=== PATIENT | male | born 2000 | race Caucasian/White ===

== ENCOUNTER → 2020-02-13 | Outpatient (CLI) | payer BC ==
--- NOTE | 2020-02-13 14:27 | Diagnostic Imaging Report ---
Indication: Neck swelling, history of hypothyroidism Technique: Grayscale and duplex images of the thyroid Comparison: none Findings: Right thyroid lobe measures 3.4 cm length x 0.8 cm AP. Left thyroid lobe measures 2.6 cm length x 0.8 cm AP. Both thyroid lobes are heterogeneously hypoechoic. No focal abnormality. Impression: Small heterogeneously hypoechoic bilateral thyroid lobes, without discrete mass. Findings may represent sequela of prior thyroiditis, particularly in view of stated clinical history of hypothyroidism. No evidence of thyroid mass or nodule
== END | disposition home or self-care (01) ==
LOC: ULS 12:01
DX: R22.1 Localized swelling, mass and lump, neck (principal); E03.9 Hypothyroidism, unspecified
CPT/HCPCS: 76536